=== PATIENT | male | born 1995 | race Caucasian/White ===

== ENCOUNTER 2020-12-09 19:41 | Emergency (ER) | payer SELFPAY ==
[2020-12-09 19:50] VITALS: BP 123/82; PULSE 110; TEMP 98.6; BMI 41.9
[2020-12-09] MEDS ORDERED: DIPHTH,PERTUSS(ACELL),TET 0.5 ML DISP.SYRIN IM ONE ×2 (21:09→22:01)
== END 2020-12-09 23:39 | disposition home or self-care (01) ==
LOC: JERFT 19:41
PROC: 3E0234Z Introduction of Serum, Toxoid and Vaccine into Muscle, Percutaneous Approach (ICD-10-PCS; principal; 2020-12-09)
DX: S21.111A Laceration without foreign body of right front wall of thorax without penetration into thoracic cavity, initial encounter (principal); W26.0XXA Contact with knife, initial encounter; Y92.9 Unspecified place or not applicable
CPT/HCPCS: 71046-TC-FY; 90715; 99284-25